=== PATIENT | male | born 2000 | race Caucasian/White ===

== ENCOUNTER 2022-06-19 11:26 | Emergency (ER) | payer MEDICAID ==
[~2022-06-19] VITALS: Ht 175.3 cm; Wt 91.2 kg
[2022-06-19 11:30] VITALS: BP 131/80
[2022-06-19] MEDS ORDERED: LIDOCAINE 2%/EPI 1:100,000 inj. Multi-dose 20 ML VIAL IJ ONE (12:00)
[2022-06-19] MEDS ORDERED: LIDOcaine 1% W/epiNEPHrine 1:100,000 20ml vial IJ ONE (12:05)
[2022-06-19] MEDS ORDERED: CEPH250T PO (12:19)
[2022-06-19] MEDS ORDERED: CLIN-143 PO (12:19)
== END 2022-06-19 12:44 | disposition home or self-care (01) ==
LOC: ER 11:26
DX: L02.11 Cutaneous abscess of neck (principal); Z88.2 Allergy status to sulfonamides; Z79.899 Other long term (current) drug therapy
CPT/HCPCS: 10060; 99283; A6258; A6266; A6449